=== PATIENT | female | born 1980 | race Caucasian/White ===

== ENCOUNTER 2024-09-10 12:52 | Emergency (ER) | payer MEDICAID, SELFPAY ==
[2024-09-10 12:53] VITALS: PULSE 95; RESP 98; BMI 36.8
[2024-09-10 13:06] VITALS: BP 148/99; BP 169/85; PULSE 80; RESP 40; TEMP 36.8; O2SAT 99
--- NOTE | 2024-09-10 13:12 | XR_ITS ---
Examination: CT brain head without contrast. 2-D sagittal coronal reconstructions Date and time of exam:September 10, 2024 1353 hours INDICATIONS: Onset headaches dizziness today CTDI: vol (mGy):54.4 DLP: (mGycm):1115 Technique: Multiple CT axial sections of the brain have been obtained, 5 mm slice thickness. Contrast has not been administered. 2-D sagittal, coronal reconstructions have been obtained Low dose protocols were performed. One or more of the following dose reduction techniques were used; automated exposure control, adjustment of the mA and/or KV according to patient size, use of iterative reconstruction technique. Findings: No significant ventricular enlargement. Intra-axial or extra-axial hemorrhage density is not seen. No mass effect or midline shift Basal cisterns are not remarkable. Fourth ventricle is midline. Cranial vault intact. Impression: Negative for acute hemorrhage, mass effect or midline shift Advise clinical correlation follow-up accordingly
--- NOTE | 2024-09-10 13:12 | XR_ITS ---
Examination: PA lateral chest 2 views TECHNIQUE: Upright PA lateral chest 2 views Exam date and time: September 10, 2024 1342 hours Comparison April 23, 2024 INDICATIONS: Onset chest pain today. FINDINGS: Again noted retrocardiac gastric hernia Normal heart size No pneumonia or pulmonary edema IMPRESSION: No active disease
--- NOTE | 2024-09-10 13:12 | EKG_ITS ---
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
--- NOTE | 2024-09-10 13:12 | PD.EDRME ---
Rapid Medical Screening Exam RME Arrival date/time: 09/10/24 12:52 44-year-old female with schizoaffective disorder presents emergency department complaints of dizziness and anxiety Chief Complaint: Dizziness Time Seen by Provider: 09/10/24 13:05 Vital signs: Vital Signs Temperature 98.3 F 09/10/24 13:06 Pulse Rate 80 09/10/24 13:06 Respiratory Rate 40 H 09/10/24 13:06 Blood Pressure 169/85 H 09/10/24 13:06 Pulse Oximetry (%) 99 09/10/24 13:06 Oxygen Delivery Method Room Air 09/10/24 13:06
[2024-09-10] MEDS: LORazepam 0.5 MG TABLET PO (13:17)
[2024-09-10 13:56] LABS: Basophils % (Auto) 0 % (0-2.5); Eosinophils % (Auto) 0 % (0-10); Hematocrit 42.5 % (36.0-46.0); Hemoglobin 14.7 g/dL (12.0-16.0); Immature Granulocytes % (Auto) 1 % (0-0); Immature Granulocytes Auto 0.13 Thou/mm3 (0.00-0.00); Lymphocytes # (Auto) 4.6 Thou/mm3 (1.0-4.8); Lymphocytes % (Auto) 33 % (10-50); Mean Corpuscular HGB Conc 34.6 g/dl (31.0-37.0); Mean Corpuscular Hemoglobin 30.8 pg (25.0-35.0); Mean Corpuscular Volume 89 fL (80-100); Monocytes # (Auto) 0.9 Thou/mm3 (0.0-0.8); Monocytes % (Auto) 6 % (0-12); Neutrophils # (Auto) 8.3 Thou/mm3 (1.8-7.7); Neutrophils % (Auto) 60 % (37-80); Nucleated Red Blood Cell % 0 /100 WBC (0); Platelet Count 228 Thou/mm3 (140-440); RDW Standard Deviation 42.5 fL (36.4-46.3); Red Blood Count 4.77 Miln/mm3 (4.00-5.20)
[2024-09-10 14:19] LABS: Alanine Aminotransferase 14 U/L (10-49); Albumin, Serum 4.3 gm/dL (3.5-5.0); Albumin/Globulin Ratio 1.7 (1.2-2.2); Alkaline Phosphatase 80 U/L (46-116); Anion Gap 5 (7-16); Aspartate Amino Transferase 11 U/L (0-34); BUN/Creatinine Ratio 14 Ratio (12-20); Bilirubin,Total 0.5 mg/dL (0.3-1.2); Blood Urea Nitrogen 14 mg/dL (9-23); Calcium 10.1 mg/dL (8.3-10.6); Calcium (Corrected) 10.1 mg/dL (8.5-10.1); Carbon Dioxide 26.9 mMol/L (20.0-31.0); Chloride 102 mMol/L (98-107); Globulin 2.5 gm/dL (2.3-3.5); Glucose 88 mg/dL (74-106); Osmolality,Calculated 267 (275-295); Potassium 3.1 mMol/L (3.4-5.1); Sodium 134 mMol/L (136-145); Total Protein 6.8 gm/dL (5.7-8.2); Troponin I < 0.020 ng/mL (0.0-0.045); eGFR > 60 See Note
[2024-09-10 14:42] LABS: Amphetamine/Methamp Scrn,U Negative (Negative); Barbiturate Screen,Urine Negative (Negative); Benzodiazepines Screen,Urine Negative (Negative); Benzoylecgonine Screen, Ur Negative (Negative); Fentanyl Screen,Urine Negative (Negative); Opiate Screen,Urine Negative (Negative); THC Screen,Urine Negative (Negative)
[2024-09-10 14:47] LABS: HCG Qualitative,Urine Negative
[2024-09-10 15:38] VITALS: BP 118/84; PULSE 97; RESP 20; TEMP 37.1; O2SAT 97
--- NOTE | 2024-09-10 15:38 | PD.EDADULT ---
ED General RME/HPI General Chief complaint: Dizziness Stated complaint: DIZZINESS TODAY Time Seen by Provider: 09/10/24 13:05 Arrival date/time: 09/10/24 12:52 CC: Dizziness HPI patient has had 2 short episodes of dizziness that spontaneously resolved the last 24 hours denies any repeat of that denies any numbness or tingling in her face around her mouth. The patient states no prior history of similar events. Patient was seen while eating chips she was awake alert oriented with stable vital signs. Patient no chest pain shortness of breath or difficulty breathing. Patient states he recently finished course of antibiotics for a respiratory infection . Patient states she still has an occasional cough. RME / HPI RME / HPI narrative: 09/10/24 12:52 44-year-old female with schizoaffective disorder presents emergency department complaints of dizziness and anxiety Related Data Home Medications ?Medication ?Instructions ?Recorded ?Confirmed losartan 100 1 tab PO QDAY 05/31/19 05/31/19 mg-hydrochlorothiazide 12.5 mg tablet oxybutynin chloride 10 mg 10 mg PO QDAY 05/31/19 05/31/19 tablet,extended release 24 hr Previous Rx's ?Medication ?Instructions ?Recorded diazepam 2 mg tablet (Valium) 2 mg PO BID PRN muscle spasm #10 05/30/19 tabs ibuprofen 600 mg tablet 600 mg PO Q6H #30 tabs 05/30/19 ibuprofen 800 mg tablet 800 mg PO TID PRN pain #30 tabs 05/30/21 Allergies Allergy/AdvReac Type Severity Reaction Status Date / Time amoxicillin Allergy Severe UNKNOWN Verified 09/10/24 12:55 ampicillin Allergy Severe UNKNOWN Verified 09/10/24 12:55 latex Allergy Severe Hives Verified 09/10/24 12:55 meperidine Allergy Severe ITCHY ALL Verified 09/10/24 12:55 OVER metoclopramide Allergy Severe SHAKING, Verified 09/10/24 12:55 VOMITING morphine Allergy Severe HIVES Verified 09/10/24 12:55 Penicillins Allergy Severe UNKNOWN Verified 09/10/24 12:55 prochlorperazine Allergy Severe TWITCHINIG Verified 09/10/24 12:55 adhesive tape AdvReac Severe RASH Verified 09/10/24 12:55 Review of Systems Review of Systems Narrative Review of Systems: GEN: No fever, no chills, no weight loss EYES: No discharge, no visual changes, no pain HEENT: No ear pain, no congestion, no sore throat PULM: No shortness of breath, no cough, no congestion CV: No chest pain, no dyspnea on exertion, no palpitations GI: No nausea, no vomiting, no diarrhea, no pain, no constipation : No frequency, no urgency, no dysuria MUSC/SKEL: No joint pain, no back pain SKIN: No rash PSYCH: No hallucinations, no depression HEME/LYMPH: No easy bleeding or bruising tendencies NEURO: No weakness, no headache, + dizziness Past Medical History Past Medical History NEUROLOGIC: Positive Seizures and Spina Bifida; Negative Neurological Disorders CARDIAC: Positive Cardiac Disorders and Hypertension; Negative Congestive Heart Failure RESPIRATORY: Positive Asthma; Negative Chronic Obstructive Pulmonary Disease (COPD), Emphysema, Pneumonia or Tuberculosis GASTROINTESTINAL: Positive Gastrointestinal Disorders, Gall Bladder Disease, Hiatal Hernia and Obesity GENITOURINARY: Negative Genitourinary Disorders or Renal Disease REPRODUCTIVE: Positive Endometriosis and Previous Pregnancies MUSCULOSKELETAL: Positive Musculoskeletal Disorders ENT: Positive Deafness ENDOCRINE: Negative Endocrine Disorders, Diabetes Mellitus Type 1 or Diabetes Mellitus Type 2 HEMATOLOGIC: Negative Blood Disorders PSYCHO/SOCIAL: Positive Schizophrenia, Depression and Anxiety OTHER HISTORY: Positive Chicken Pox; Negative Autoimmune Disease or Cancer Family History FAMILY HISTORY: Positive Family Psychiatric Problems, Family Respiratory Disorders, Family Cardiac Disorders and Family Surgery Surgical History SURGICAL: Positive Hysterectomy and Tubal Ligation Social History SMOKING STATUS: Current every day smoker ED Exam Narrative Physical exam: [General: Obese not in any acute distress Head normocephalic HEENT: Within acceptable limits Neck is supple nontender Chest equal chest rise nontender to palpation Respiratory: Clear to auscultation no wheezes crackles or rubs CV: Rate rhythm is regular no murmurs rubs or clicks Abdomen is distended secondary to body habitus soft nontender no masses positive bowel sounds all 4 quadrants Back: No CVA tenderness no spinous process tenderness from cervical spine thoracic and lumbar spine Skin: Intact no petechiae rash induration ulceration or crepitus Extremities: Moving all extremity against resistance cap refill less than 2 seconds neurosensory intact Neuro: Awake alert oriented x3 Glascow coma 15 no focal deficits] Course Quality Measures none Orders Category Date Time Status EKG (ED ONLY) *Do not use* NOW Care 09/10/24 13:[address] head/brain wo con Stat Exams 09/10/24 13:12 Completed EKG (ED Only) Stat Exams 09/10/24 13:12 Draft XR chest 2V Stat Exams 09/10/24 13:12 Completed CBC Stat Lab 09/10/24 13:47 Completed Comprehensive Metabolic Panel Stat Lab 09/10/24 13:47 Completed Drug Screen,Urine Stat Lab 09/10/24 14:26 Completed HCG Qualitative,Urine Stat Lab 09/10/24 14:26 Completed Troponin I Stat Lab 09/10/24 13:47 Completed LORazepam [Ativan] Med 09/10/24 13:12 Discontinued 0.5 mg PO X1 ONE Vital Signs Vital signs: Vital Signs Temperature 98.3 F 09/10/24 13:06 Pulse Rate 80 09/10/24 13:06 Respiratory Rate 40 H 09/10/24 13:06 Blood Pressure 169/85 H 09/10/24 13:06 Pulse Oximetry (%) 99 09/10/24 13:06 Oxygen Delivery Method Room Air 09/10/24 13:06 MDM Patient data External records reviewed:: [facility] previous records Clinical information provided by:: patient Social determinants that could affect healthcare access:: none Patient has the following chronic illnesses:: Anxiety How is presenting disease/condition affected by chronic disease/condition?: uneffected by Evaluation data The following diagnostics were reviewed and interpreted by me:: lab results, radiology exam(s) and EKG tracing(s) Lab and/or radiology exams considered but not ordered:: EKG performed 329 shows a ventricular rate of 110 MI interval 117 QRS of 88 QTc of 379 is sinus tachycardia CBC shows mild leukocytosis of 14, no anemia thrombocytopenia CMP shows mild hypokalemia no other significant electrolyte imbalances renal impairment transaminitis or T. bili elevation CT of the head is interpreted by me read by radiology as negative for any acute finding Troponin is negative Interpretation Summary: Patient has no clinical findings at this time and no acute findings require emergent or immediate intervention patient to be discharged home with transient vertigo Medications Medications considered but not ordered:: None Medication administrations:: Medication Administration History Discontinued Medications Lorazepam (Lorazepam 0.5 Mg Tablet) 0.5 mg PO X1 ONE Stop: 09/10/24 13:13 Last Admin: 09/10/24 13:17 Dose: 0.5 mg Documented By: OA None Consultations Consultation(s) initiated? (list below): No Diagnosis Differential Diagnosis ED Complaint MDM: Transient vertigo anxiety Most likely diagnosis given after review of the tests above:: see below Admission Indicated Admission indicated?: not indicated Explain why admission is indicated or not indicated:: Stable for outpatient follow-up Admission Request Was there a request for admission?: No Disposition Plan Disposition Plan: Discharge Discharge Attestation Discharge Attestation: The patient and all family members were given an opportunity to ask questions and understood the discharge instructions. Discharge instructions specifically effects, indications for sooner follow up or return to the emergency department, and the expected course of current diagnosis. Patient condition: Stable Medical Decision Making Differential Diagnosis Differential Diagnosis: Transient vertigo anxiety Lab Data 09/10/24 13:47 09/10/24 13:47 Labs: Lab Results 09/10/24 09/10/24 Range/Units 13:47 14:26 WBC 14.0 H (3.6-11.0) Thou/mm3 RBC 4.77 (4.00-5.20) Miln/mm3 Hgb 14.7 (12.0-16.0) g/dL Hct 42.5 (36.0-46.0) % MCV 89 (80-100) fL MCH 30.8 (25.0-35.0) pg MCHC 34.6 (31.0-37.0) g/dl RDW Std Deviation 42.5 (36.4-46.3) fL Plt Count 228 (140-440) Thou/mm3 Neut % (Auto) 60 (37-80) % Lymph % (Auto) 33 (10-50) % [place] % (Auto) 6 (0-12) % Eos % (Auto) 0 (0-10) % Baso % (Auto) 0 (0-2.5) % Neut # (Auto) 8.3 H (1.8-7.7) Thou/mm3 Lymph # (Auto) 4.6 (1.0-4.8) Thou/mm3 [place] # (Auto) 0.9 H (0.0-0.8) Thou/mm3 Eos # (Auto) 0.0 (0.0-0.5) Thou/mm3 Baso # (Auto) 0.0 (0.0-0.2) Thou/mm3 Immature Gran # (Auto) 0.13 H (0.00-0.00) Thou/mm3 Absolute Nucleated RBC 0.00 (0.00-0.00) Thou/mm3 Immature Gran % 1 H (0-0) % Nucleated RBC % 0 (0) /100 WBC Sodium 134 L (136-145) mMol/L Potassium 3.1 L (3.4-5.1) mMol/L Chloride 102 (98-107) mMol/L Carbon Dioxide 26.9 (20.0-31.0) mMol/L Anion Gap 5 L (7-16) BUN 14 (9-23) mg/dL Creatinine 1.0 (0.6-1.3) mg/dL Estim Creat Clear Calc 80.0 (>60) mL/min eGFR > 60 (60 - ) See Note BUN/Creatinine Ratio 14 (12-20) Ratio Glucose 88 (74-106) mg/dL Calculated Osmolality 267 L (275-295) Calcium 10.1 (8.3-10.6) mg/dL Corrected Calcium 10.1 (8.5-10.1) mg/dL Total Bilirubin 0.5 (0.3-1.2) mg/dL AST 11 (0-34) U/L ALT 14 (10-49) U/L Alkaline Phosphatase 80 (46-116) U/L Troponin I < 0.020 (0.0-0.045) ng/mL Total Protein 6.8 (5.7-8.2) gm/dL Albumin 4.3 (3.5-5.0) gm/dL Globulin 2.5 (2.3-3.5) gm/dL Albumin/Globulin Ratio 1.7 (1.2-2.2) Urine HCG, Qual Negative Urine Opiates Screen Negative (Negative) Urine Fentanyl Screen Negative (Negative) Ur Barbiturates Screen Negative (Negative) U Amphetamin/Meth Scrn Negative (Negative) U Benzodiazepines Scrn Negative (Negative) U Cocaine Metab Screen Negative (Negative) U Marijuana (THC) Screen Negative (Negative) Discharge Plan Plan Patient Disposition: HOME (Self Care) Patient condition on transfer: Stable Prescriptions/Referrals Prescriptions/Med Rec: No Action losartan-hydrochlorothiazide 100-12.5 mg tablet 1 tab PO QDAY oxybutynin chloride 10 mg tablet extended release 24hr 10 mg PO QDAY ibuprofen 800 mg tablet 800 mg PO TID PRN (Reason: pain) Qty: 30 0RF diazepam [Valium] 2 mg tablet 2 mg PO BID PRN (Reason: muscle spasm) Qty: 10 0RF ibuprofen 600 mg tablet 600 mg PO Q6H Qty: 30 0RF Referrals: Canelo Mckeon FNP [Primary Care Provider] - In 1 week Problem List Clinical Impression: Vertigo Patient/Caregiver Discharge Instructions Education Materials: ED Dizziness, Uncertain Cause Additional Instructions: Follow-up with your primary care provider Print Language: Icelandic Stand Alone Forms: Kelsy Award Info., Work/School Release, Patient Portal Info Letter MD Attestation Attestation The patient was seen by the midlevel practitioner. I, the co-signing physician, was present during the entire ER visit. While I did not physically examine the patient, I was available for consultation as needed.
== END 2024-09-10 16:11 | disposition home or self-care (01) ==
PROVIDERS: Nurse Practitioner Primary Care; Emergency Provider Emergency Medicine; PCP Nurse Practitioner Family
DX: R42 Dizziness and giddiness (principal); R51.9 Headache, unspecified; R07.9 Chest pain, unspecified; R00.0 Tachycardia, unspecified; D72.829 Elevated white blood cell count, unspecified; E87.6 Hypokalemia; I10 Essential (primary) hypertension; F17.210 Nicotine dependence, cigarettes, uncomplicated
CPT/HCPCS: 36415; 70450; 71046; 80053; 80307; 81025; 84484; 85025; 93005; 99284; A9270

== ENCOUNTER 2025-03-06 15:49 | Emergency (ER) | payer MEDICAID, SELFPAY ==
[2025-03-06 15:50] VITALS: BP 128/86; PULSE 85; RESP 18; TEMP 36.8; O2SAT 95
[2025-03-06 16:23] VITALS: PULSE 107; RESP 22; O2SAT 94
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
--- NOTE | 2025-03-06 16:25 | EKG_ITS ---
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
--- NOTE | 2025-03-06 16:25 | XR_ITS ---
Examination: AP chest single view Technique : AP portable upright chest single view Date and time: March 06, 2025 1656 hours, comparison September 10, 2024 INDICATIONS: Weakness shortness of breath today. FINDINGS: Large retrocardiac gastric hernia. Normal heart size. The lungs are clear. The osseous structures are intact IMPRESSION: No active disease.
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
[2025-03-06] MEDS: ACETAMINOPHEN 325 MG TABLET 650 MG PO (16:38)
[2025-03-06] MEDS: SODIUM CHLORIDE 0.9% 1000 ML 1,000 ML 999 ML IV (16:39)
[2025-03-06 16:55] LABS: Lactate (Lactic Acid) 0.8 mMol/L (0.4-2.0)
[2025-03-06 16:57] LABS: Basophils % (Auto) 1 % (0-2.5); Eosinophils % (Auto) 1 % (0-10); Hematocrit 34.2 % (36.0-46.0); Hemoglobin 11.8 g/dL (12.0-16.0); Immature Granulocytes % (Auto) 1 % (0-0); Immature Granulocytes Auto 0.02 Thou/mm3 (0.00-0.00); Lymphocytes # (Auto) 1.7 Thou/mm3 (1.0-4.8); Lymphocytes % (Auto) 41 % (10-50); Mean Corpuscular HGB Conc 34.5 g/dl (31.0-37.0); Mean Corpuscular Hemoglobin 30.5 pg (25.0-35.0); Mean Corpuscular Volume 88 fL (80-100); Monocytes # (Auto) 0.5 Thou/mm3 (0.0-0.8); Monocytes % (Auto) 12 % (0-12); Neutrophils # (Auto) 1.8 Thou/mm3 (1.8-7.7); Neutrophils % (Auto) 45 % (37-80); Nucleated Red Blood Cell % 0 /100 WBC (0); Platelet Count 219 Thou/mm3 (140-440); RDW Standard Deviation 49.9 fL (36.4-46.3); Red Blood Count 3.87 Miln/mm3 (4.00-5.20)
[2025-03-06 17:28] LABS: Alanine Aminotransferase 14 U/L (10-49); Albumin, Serum 3.9 gm/dL (3.5-5.0); Albumin/Globulin Ratio 1.8 (1.2-2.2); Alcohol, Blood Medical < 10.0 mg/dL (0-10.0); Alkaline Phosphatase 81 U/L (46-116); Anion Gap 6 (7-16); Aspartate Amino Transferase 19 U/L (0-34); BUN/Creatinine Ratio 9 Ratio (12-20); Bilirubin,Total 0.5 mg/dL (0.3-1.2); Blood Urea Nitrogen 7 mg/dL (9-23); Calcium 8.7 mg/dL (8.3-10.6); Calcium (Corrected) 8.8 mg/dL (8.5-10.1); Carbon Dioxide 27.8 mMol/L (20.0-31.0); Chloride 106 mMol/L (98-107); Creatine Kinase 54 U/L (34-171); Creatinine (Component) 0.8 mg/dL (0.6-1.3); Globulin 2.2 gm/dL (2.3-3.5); Glucose 96 mg/dL (74-106); Magnesium 1.5 mg/dL (1.6-2.6); Osmolality,Calculated 277 (275-295); Phosphorous 2.8 mg/dL (2.4-5.1); Potassium 3.4 mMol/L (3.4-5.1); Sodium 140 mMol/L (136-145); Total Protein 6.1 gm/dL (5.7-8.2); Troponin I < 0.002 ng/mL (0.0-0.045); eGFR > 60 See Note
[2025-03-06] MEDS: POTASSIUM CHLORIDE 20 mEq TABCR 40 MEQ PO (17:50)
[2025-03-06] MEDS: Magnesium Sulfate 2 GM Ivpb 2 GM/50 ML BAG IV (17:51)
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
[2025-03-06 18:09] VITALS: BP 154/84; PULSE 83; RESP 17; TEMP 36.8; O2SAT 97
[2025-03-06 18:52] LABS: Collection Type, Urine Clean Catch
[2025-03-06] MEDS: SCOPOLAMINE 1 MG TDSY TOP (18:56)
[2025-03-06] MEDS: MECLIZINE HCL 25 MG TABLET PO (18:57)
[2025-03-06 19:16] LABS: Bilirubin,Urine Negative (Negative); Blood,Urine Trace (Negative); Clarity,Urine Turbid (Clear/Hazy); Color,Urine Lt-Yellow (Lt Yel-Yel); Glucose, Urine Negative (Negative); Ketones,Urine Negative (Negative); Leukocyte Esterase,Urine Positive (Negative); Nitrite,Urine Positive (Negative); PH,Urine 6.5 (5.0-7.0); Protein,Urine Negative (Neg - Trace); RBC,Urine 8 /hpf (0-3); Specific Gravity,Urine 1.006 (1.001-1.035); Squamous Epithelial Cell,Urine < 1 /hpf (0-5); Urobilinogen,Urine Negative mg/dL (0.0-1.0); WBC,Urine 100 /hpf (0-5)
[2025-03-06 20:28] LABS: Amphetamine/Methamp Scrn,U Positive (Negative); Barbiturate Screen,Urine Negative (Negative); Benzodiazepines Screen,Urine Negative (Negative); Benzoylecgonine Screen, Ur Negative (Negative); Fentanyl Screen,Urine Negative (Negative); Opiate Screen,Urine Negative (Negative); THC Screen,Urine Positive (Negative)
== END 2025-03-06 19:25 | disposition home or self-care (01) ==
PROVIDERS: Student in an Organized Health Care Education/Training Program; Emergency Provider Emergency Medicine; PCP Nurse Practitioner Family
DX: R55 Syncope and collapse (principal); I95.9 Hypotension, unspecified; I10 Essential (primary) hypertension; J44.9 Chronic obstructive pulmonary disease, unspecified; M54.2 Cervicalgia; R51.9 Headache, unspecified; D50.9 Iron deficiency anemia, unspecified
CPT/HCPCS: 36415; 70450; 71045; 72125; 80053; 80307; 80320; 81001; 82550; 83605; 83735; 84100; 84484; 85025; 96360; 99284; J3475; J7030; A9270; G0480

== ENCOUNTER → 2025-06-05 | Outpatient (CLI) | payer MEDICAID, SELFPAY ==
--- NOTE | 2025-06-05 15:34 | XR_ITS ---
Examination: Bilateral hands, 6 views. Technique: AP, Oblique, Lateral each hand total 6 views Date and time of exam: June 05, 2025, 6006 hours INDICATIONS: Bilateral hand pain beginning 3 weeks ago FINDINGS: Adequate bone density. No fracture or dislocation involving either hand. No labral several or other significant arthritic change involving either No avascular necrosis No opaque foreign bodies Impression: No fractures No erosive or other significant arthritic change involving either hand
--- NOTE | 2025-06-05 15:34 | XR_ITS ---
Examination: Left forearm 2 views Technique an AP lateral left forearm 2 views Date and time: June 05, 2025 1606 hours INDICATIONS: Forearm pain beginning 3 weeks ago, no trauma FINDINGS: No fracture or dislocation. No cortical bone destruction. No elbow effusion IMPRESSION: Negative examination
--- NOTE | 2025-06-05 16:27 | XR_ITS ---
Examination: Duplex scan of the lower extremity, unilateral right complete Date and time of exam: June 05, 2025 at 1629 hours INDICATIONS: Right leg pain 2 months Technique: Duplex scan of the extremity veins using B-mode/grayscale imaging and Doppler spectral analysis and color flow Attention is directed to internal echogenicity, compression and augmentation involving these veins, color flow assessment, spectral analysis Findings: Major deep venous structures in the extremity demonstrate normal course and caliber. There is no evidence of deep vein thrombosis. Normal color flow and spectral analysis Impression: Negative for DVT..
== END | disposition home or self-care (01) ==
LOC: SDIM 15:17
PROVIDERS: PCP Student in an Organized Health Care Education/Training Program; Referring Provider Student in an Organized Health Care Education/Training Program; Visit Provider Student in an Organized Health Care Education/Training Program
DX: M79.661 Pain in right lower leg (principal); M79.601 Pain in right arm; M79.602 Pain in left arm; M79.642 Pain in left hand; M79.641 Pain in right hand
CPT/HCPCS: 73090; 73130; 93971

== ENCOUNTER 2025-06-30 04:54 | Emergency (ER) | payer MEDICAID, SELFPAY ==
[2025-06-30 04:56] VITALS: BMI 28.3
[2025-06-30 05:00] VITALS: BP 156/96; PULSE 91; RESP 19; TEMP 36.7; O2SAT 98
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
--- NOTE | 2025-06-30 05:27 | PC.NURSE ---
pt does not want anyone to hook her to leads advised hack driver to stop putting on leads, she was not wanting to hold still, BRYAN costa and MERYL guillen in room she did not want to put on gown advised it is part of hosptial protocol she kept saying since when and why, she kept telling hack driver to stop touching her as leads were placed along with pulse ox, Ask her medical history she states copd and and schizo effective, when dr. bowen entered he was checking her legs asked if everyone would stop touching she doesnt like to be touched only we were trying to place gound and dr. Bowen was examing legs as pt stated one was colder that the other. Pt was not holding still moving around, she was asked if she was under influence of meth by dr. bowen, i advised that she stated she was schizo effective, she got mad and stated I am not serious schizo, I stated no I advised that you have medical history of schizo effective, she was saying ok can I go I want to go, Dr. Bowen, BRYAN Cabezas, MERYL Guillen were present with conversation with patient, Pt started calling for boyfriend, stating she wanted my name or she was going to call the police and [facility], my name was given but she wanted last name as well. Advised that will not be provided, AMA form was given to patient by BRYAN cabezas, pt stated she was going to call remote computer terminal operator to get my last name. Tavares linda spoke with pt.
== END 2025-06-30 05:45 | disposition left against medical advice (07) ==
LOC: SERX 05:48
PROVIDERS: Emergency Provider Emergency Medicine
DX: S80.12XA Contusion of left lower leg, initial encounter (principal); W22.8XXA Striking against or struck by other objects, initial encounter; Z53.29 Procedure and treatment not carried out because of patient's decision for other reasons
CPT/HCPCS: 80053; 84703; 85025; 99281

== ENCOUNTER 2025-08-08 21:28 | Emergency (ER) | payer MEDICAID, SELFPAY ==
[2025-08-08 22:18] VITALS: BP 156/89; PULSE 106; RESP 20; TEMP 36.9; O2SAT 97
--- NOTE | 2025-08-08 22:25 | XR_ITS ---
Examination: Shoulder, right, 3 views Technique: Shoulder AP internal rotation, AP external rotation, Y view shoulder, 3 views Exam date and time : August 08, 2025, 10 0 3:00 p.m. INDICATIONS: Shoulder pain beginning 4 hours ago FINDINGS: No shoulder fracture or dislocation No AC joint separation No foreign body IMPRESSION: No shoulder fracture or dislocation
--- NOTE | 2025-08-08 23:14 | PD.EDUPEX ---
Upper Extremity Injury RME/HPI General Chief Complaint: Extremity Injury, Upper Stated Complaint: RIGHT SHOULDER INJURY Time Seen by Provider: 08/08/25 22:25 Arrival date/time: 08/08/25 21:28 45F with history of meth use presents to ED with R shoulder pain after lifting something. Limitations: no limitations Related Data Home Medications ?Medication ?Instructions ?Recorded ?Confirmed losartan 100 1 tab PO QDAY 05/31/19 05/31/19 mg-hydrochlorothiazide 12.5 mg tablet oxybutynin chloride 10 mg 10 mg PO QDAY 05/31/19 05/31/19 tablet,extended release 24 hr Previous Rx's ?Medication ?Instructions ?Recorded diazepam 2 mg tablet (Valium) 2 mg PO BID PRN muscle spasm #10 05/30/19 tabs ibuprofen 600 mg tablet 600 mg PO Q6H #30 tabs 05/30/19 ibuprofen 800 mg tablet 800 mg PO TID PRN pain #30 tabs 05/30/21 cefdinir 300 mg capsule 300 mg PO BID #14 caps 03/06/25 meclizine 25 mg tablet 25 mg PO BID PRN dizziness #20 tabs 03/06/25 scopolamine base 1 mg over 3 days 1 mg topical .q72 hours PRN 03/06/25 transdermal patch (Transderm-Scop) dizziness or vertigo #4 ea Allergies Allergy/AdvReac Type Severity Reaction Status Date / Time amoxicillin Allergy Severe UNKNOWN Verified 08/08/25 21:29 ampicillin Allergy Severe UNKNOWN Verified 08/08/25 21:29 latex Allergy Severe Hives Verified 08/08/25 21:29 meperidine Allergy Severe ITCHY ALL Verified 08/08/25 21:29 OVER metoclopramide Allergy Severe SHAKING, Verified 08/08/25 21:29 VOMITING morphine Allergy Severe HIVES Verified 08/08/25 21:29 Penicillins Allergy Severe UNKNOWN Verified 08/08/25 21:29 prochlorperazine Allergy Severe TWITCHINIG Verified 08/08/25 21:29 adhesive tape AdvReac Severe RASH Verified 08/08/25 21:29 Review of Systems Review of Systems Systems Reviewed: All systems reviewed, normal except as documented Musculoskeletal Musculoskeletal: Reports as per HPI and Reports arthralgias Past Medical History Past Medical History NEUROLOGIC: Positive Seizures and Spina Bifida; Negative Neurological Disorders CARDIAC: Positive Cardiac Disorders and Hypertension; Negative Congestive Heart Failure RESPIRATORY: Positive Asthma; Negative Chronic Obstructive Pulmonary Disease (COPD), Emphysema, Pneumonia or Tuberculosis GASTROINTESTINAL: Positive Gastrointestinal Disorders, Gall Bladder Disease, Hiatal Hernia and Obesity GENITOURINARY: Negative Genitourinary Disorders or Renal Disease REPRODUCTIVE: Positive Endometriosis and Previous Pregnancies MUSCULOSKELETAL: Positive Musculoskeletal Disorders ENT: Positive Deafness ENDOCRINE: Negative Endocrine Disorders, Diabetes Mellitus Type 1 or Diabetes Mellitus Type 2 HEMATOLOGIC: Negative Blood Disorders PSYCHO/SOCIAL: Positive Schizophrenia, Depression and Anxiety OTHER HISTORY: Positive Chicken Pox; Negative Autoimmune Disease or Cancer Family History FAMILY HISTORY: Positive Family Psychiatric Problems, Family Respiratory Disorders, Family Cardiac Disorders and Family Surgery Surgical History SURGICAL: Positive Hysterectomy and Tubal Ligation Social History SMOKING STATUS: Current every day smoker ED Exam General Limitations: Present no limitations General appearance: Present alert and in no apparent distress Head Head exam: Present atraumatic Neck Neck exam: Present normal inspection, full ROM and trachea midline Chest Chest inspection: Present normal inspection and symmetric chest wall rise Expanded Upper Extremity Exam Shoulder exam: Absent full ROM (R) Neurological Exam Neurological exam: Present alert and oriented X3 Psychiatric Psychiatric exam: Present normal affect and normal mood Skin Skin exam: Present warm, dry, intact and normal color Course Quality Measures none Orders Category Date Time Status sling [Splint / Immobilizer] STAT Care 08/08/25 22:25 Active XR shoulder RT min 2V Stat Exams 08/08/25 22:25 Completed Naproxen [Naprosyn] Med 08/08/25 23:10 Discontinued 500 mg PO X1 ONE Vital Signs Vital signs: Vital Signs Temperature 98.5 F 08/08/25 22:18 Pulse Rate 106 H 08/08/25 22:18 Respiratory Rate 20 08/08/25 22:18 Blood Pressure 156/89 H 08/08/25 22:18 Pulse Oximetry (%) 97 08/08/25 22:18 Oxygen Delivery Method Room Air 08/08/25 22:18 O2 at 97% on RA and WNLs Extremity Injury MDM Narrative MDM Narrative:: 45F with history of meth use presents to ED with R shoulder pain after lifting something. Physical exam reveals reduced ROM of R shoulder. Patient is afebrile, calm, and alert. XR no fx. Given meds, sling, and middle school guidance counselor. Patient data External records reviewed:: [facility] previous records Clinical information provided by:: patient Social determinants that could affect healthcare access:: substance use Patient has the following chronic illnesses:: drug use How is presenting disease/condition affected by chronic disease/condition?: exacerbated by Evaluation data The following diagnostics were reviewed and interpreted by me:: radiology exam(s) Lab and/or radiology exams considered but not ordered:: ordered Interpretation Summary: above Medications / Prescriptions Medications or Prescriptions considered but not ordered:: ordered Medication administrations:: Medication Administration History Discontinued Medications Naproxen (Naproxen 250 Mg Tablet) 500 mg PO X1 ONE Stop: 08/08/25 23:11 pt refused Consultations Consultation(s) initiated? (list below): No Diagnosis Upper Extremity Injury Differential Diagnosis: dislocation of shoulder, fracture of humerus, fracture of clavicle and other (shoulder pain) Most likely diagnosis given after review of the tests above:: shoulder pain Admission Indicated Admission indicated?: not indicated Admission Request Was there a request for admission?: No Disposition Plan Disposition Plan: Discharge Discharge Attestation Discharge Attestation: The patient and all family members were given an opportunity to ask questions and understood the discharge instructions. Discharge instructions specifically effects, indications for sooner follow up or return to the emergency department, and the expected course of current diagnosis. Patient condition: Stable Discharge Plan Plan Patient Disposition: HOME (Self Care) Discharge Disposition comment: Stable Prescriptions/Referrals Prescriptions/Med Rec: No Action losartan-hydrochlorothiazide 100-12.5 mg tablet 1 tab PO QDAY oxybutynin chloride 10 mg tablet extended release 24hr 10 mg PO QDAY ibuprofen 800 mg tablet 800 mg PO TID PRN (Reason: pain) Qty: 30 0RF diazepam [Valium] 2 mg tablet 2 mg PO BID PRN (Reason: muscle spasm) Qty: 10 0RF ibuprofen 600 mg tablet 600 mg PO Q6H Qty: 30 0RF meclizine 25 mg tablet 25 mg PO BID PRN (Reason: dizziness) Qty: 20 0RF scopolamine base [Transderm-Scop] 1 mg over 3 days patch 3 day 1 mg topical .q72 hours PRN (Reason: dizziness or vertigo) Qty: 4 0RF cefdinir 300 mg capsule 300 mg PO BID Qty: 14 0RF Problem List Clinical Impression: Right shoulder pain Patient/Caregiver Discharge Instructions Education Materials: ED Arthralgia Additional Instructions: Please follow-up with PCP within 24-48 hours and return immediately if symptoms worsen. If problem persists, recommend outpatient PT and/or MRI follow-up. In the meantime, rest, use ice/heat, and/or compression. Print Language: Barbadian Stand Alone Forms: Patient Portal Info Letter PA/INFORMATION RESOURCES MANAGER Supervising Physician PA/INFORMATION RESOURCES MANAGER Supervising Physician: Dr. Stoner
== END 2025-08-08 23:21 | disposition home or self-care (01) ==
LOC: SERX 23:21
PROVIDERS: Emergency Provider Emergency Medicine; PCP Student in an Organized Health Care Education/Training Program
DX: S49.91XA Unspecified injury of right shoulder and upper arm, initial encounter (principal); X50.0XXA Overexertion from strenuous movement or load, initial encounter
CPT/HCPCS: 73030; 99284

== ENCOUNTER 2025-10-20 22:18 | Emergency (ER) | payer MEDICAID, SELFPAY ==
[2025-10-20 23:15] VITALS: BP 135/81; PULSE 90; RESP 20; TEMP 36.8; O2SAT 95; BMI 26.5
--- NOTE | 2025-10-20 23:32 | XR_ITS ---
EXAMINATION: PA chest single view TECHNIQUE: Upright PA chest single view Date and time: October 20, 2025, 1138 hours, comparison March 06, 2025 INDICATIONS: Coughing beginning 5 days ago. FINDINGS: Normal heart size. Lungs are clear. Retrocardiac gastric hernia Intact osseous structures IMPRESSION: No active disease
--- NOTE | 2025-10-21 00:10 | PC.NURSE ---
Pt was given a UA cup for an urine sample and stated she did not want to give a sample because she did not have to urinate and it would be a waste of time.
--- NOTE | 2025-10-21 00:15 | PD.EDRME ---
Rapid Medical Screening Exam RME Arrival date/time: 10/20/25 22:18 This is a case of 45-year-old female who came into the emergency room due to coughing of worm with some dizziness nausea vomiting persistence of the symptoms this patient decided to sought consult here in the emergency room Chief Complaint: Flu Like Symptoms Time Seen by Provider: 10/20/25 23:33 Vital signs: Vital Signs Temperature 98.2 F 10/20/25 23:15 Pulse Rate 90 10/20/25 23:15 Respiratory Rate 20 10/20/25 23:15 Blood Pressure 135/81 H 10/20/25 23:15 Pulse Oximetry (%) 95 10/20/25 23:15 Oxygen Delivery Method Room Air 10/20/25 23:15 Exam: Lung sounds is clear no crackles no rales no retraction no stridor neurological exam is normal and unremarkable Clinical Impression: Cough dizziness
[2025-10-21 00:34] LABS: Basophils # (Auto) 0.0 Thou/mm3 (0.0-0.2); Basophils % (Auto) 1 % (0-2.5); Eosinophils # (Auto) 0.0 Thou/mm3 (0.0-0.5); Eosinophils % (Auto) 0 % (0-10); Hematocrit 39.4 % (36.0-46.0); Hemoglobin 13.9 g/dL (12.0-16.0); Immature Granulocytes Auto 0.01 Thou/mm3 (0.00-0.00); Lymphocytes # (Auto) 2.5 Thou/mm3 (1.0-4.8); Lymphocytes % (Auto) 41 % (10-50); Mean Corpuscular HGB Conc 35.3 g/dl (31.0-37.0); Mean Corpuscular Hemoglobin 32.0 pg (25.0-35.0); Mean Corpuscular Volume 91 fL (80-100); Monocytes # (Auto) 0.7 Thou/mm3 (0.0-0.8); Monocytes % (Auto) 11 % (0-12); Neutrophils # (Auto) 2.9 Thou/mm3 (1.8-7.7); Neutrophils % (Auto) 47 % (37-80); Nucleated Red Blood Cell # 0.00 Thou/mm3 (0.00-0.00); Nucleated Red Blood Cell % 0 /100 WBC (0); Platelet Count 234 Thou/mm3 (140-440); RDW Standard Deviation 41.9 fL (36.4-46.3); Red Blood Count 4.34 Miln/mm3 (4.00-5.20); White Blood Count 6.1 Thou/mm3 (3.6-11.0)
[2025-10-21 00:42] LABS: Alanine Aminotransferase 23 U/L (10-49); Albumin, Serum 4.7 gm/dL (3.5-5.0); Albumin/Globulin Ratio 2.0 (1.2-2.2); Alkaline Phosphatase 65 U/L (46-116); Anion Gap 6 (7-16); Aspartate Amino Transferase 31 U/L (0-34); BUN/Creatinine Ratio 18 Ratio (12-20); Bilirubin,Total 0.5 mg/dL (0.3-1.2); Blood Urea Nitrogen 16 mg/dL (9-23); Calcium 9.8 mg/dL (8.3-10.6); Calcium (Corrected) 9.8 mg/dL (8.5-10.1); Carbon Dioxide 30.7 mMol/L (20.0-31.0); Chloride 106 mMol/L (98-107); Creatinine (Component) 0.9 mg/dL (0.6-1.3); Estimated Creatinine Clearance 74.6 mL/min (>60); Globulin 2.4 gm/dL (2.3-3.5); Glucose 88 mg/dL (74-106); Osmolality,Calculated 285 (275-295); Potassium 3.6 mMol/L (3.4-5.1); Sodium 143 mMol/L (136-145); Total Protein 7.1 gm/dL (5.7-8.2); eGFR > 60 See Note
--- NOTE | 2025-10-21 01:49 | PC.NURSE ---
PT REFUSED UA AND SWAB, I INFORMED HER THAT SHE NEED TO WAIT FOR RESULT FROM MD, PT GOT MAD AND LEFT ER.
== END 2025-10-21 01:50 | disposition left against medical advice (07) ==
PROVIDERS: Nurse Practitioner Family; Emergency Provider Emergency Medicine; PCP Nurse Practitioner Family
DX: R05.9 Cough, unspecified (principal); R42 Dizziness and giddiness; Z53.29 Procedure and treatment not carried out because of patient's decision for other reasons
CPT/HCPCS: 36415; 71045; 80053; 80307; 81001; 81025; 85025; 99283